=== PATIENT | female | born 1955 | race Caucasian/White ===

== ENCOUNTER 2017-02-18 23:39 | Inpatient (IN) | payer MEDICARE, MEDICAID ==
[~2017-02-18] VITALS: Ht 152.4 cm; Wt 66.8 kg
[~2017-02-18 23:39] MED LIST: CARV6.2534 PO; FURO-152 PO; GEMF600T PO; GLIP5TAB11 PO; INSLAN SQ; INSNOV SQ; LEVO150 PO; LEVO500 PO; METF10002 PO; METR500 PO
[2017-02-18 23:57] LABS: GLUCOSE,POINT OF CARE 133 MG/DL (70-110)
[2017-02-19] MEDS ORDERED: OXYB5 PO (00:02)
[2017-02-19] MEDS ORDERED: METF500T4 PO (00:02)
[2017-02-19] MEDS ORDERED: LOSA1TAB40 PO (00:02)
[2017-02-19] MEDS ORDERED: [UNRECOGNIZED DRUG - CODE] PO (00:02)
[2017-02-19] MEDS ORDERED: LEVO112T4 PO (00:02)
[2017-02-19] MEDS ORDERED: ONDANSETRON HCL 4 MG/2 ML VIAL IVP ONE ×2 (01:15→04:00)
[2017-02-19] MEDS ORDERED: KETOROLAC TROMETHAMINE 30 MG/ML VIAL IVP ONE (01:15)
[2017-02-19 01:53] LABS: HEMOGLOBIN 12.2 g/dL (12.0-16.0); MEAN CORPUSCULAR HEMOGLOBIN 31.2 pg (26.0-34.0); MEAN CORPUSCULAR HGB CONC 32.1 G/dL (31.0-37.0); MEAN CORPUSCULAR VOLUME 97 fL (80-100); PLATELET COUNT (AUTO) 368 K/uL (150-450); RED BLOOD CELL COUNT(AUTO) 3.91 MIL/uL (4.00-5.20); WHITE BLOOD COUNT (AUTO) 14.4 K/uL (4.5-11.0)
[2017-02-19 02:09] LABS: ALANINE AMINOTRANSFERASE 29 U/L (12-78); ALBUMIN 3.4 g/dL (3.4-5.0); ANION GAP 9 mmol/L (8-16); ASPARTATE AMINOTRANSFERASE 23 U/L (15-37); BILIRUBIN,TOTAL 0.2 mg/dL (0.1-1.0); CALCIUM, TOTAL 10.5 mg/dL (8.8-10.5); CARBON DIOXIDE 35 mmol/L (22-29); CHLORIDE 104 mmol/L (98-107); CREATININE 1.45 mg/dL (0.60-1.30); GLOMERULAR FILTR. RATE CALC 37 mL/min (>60); SODIUM SERUM 148 mmol/L (136-145); TOTAL PROTEIN, SERUM 7.9 g/dL (6.4-8.2); UREA NITROGEN, BLOOD 45 mg/dL (7-18)
[2017-02-19 02:18] LABS: POTASSIUM 2.9 mmol/L (3.5-5.1)
[2017-02-19 02:25] LABS: BAND NEUTROPHILS % (MANUAL) 8 % (1-5); BASOPHILS % (MANUAL) 1 % (0-2); LYMPHOCYTES % (MANUAL) 28 % (22-44); TOTAL CELLS COUNTED 100
[2017-02-19 02:26] LABS: RBC MORPHOLOGY COMMENT ABNORMAL R
[2017-02-19 02:30] LABS: LACTIC ACID 2.6 mmol/L (0.4-2.0)
[2017-02-19] MEDS ORDERED: POTASSIUM CHLORIDE 10% 40 MEQ/30 ML LIQUID UDCUP PO ONE (03:00)
[2017-02-19 03:48] LABS: REFLEX LACTIC ACID? YES YES
[2017-02-19] MEDS ORDERED: HYDROmorphone 2 MG/ML SYRINGE IVP ONE (04:00)
[2017-02-19] MEDS ORDERED: PIPERACILLIN/TAZO 3.375 GM/D5W 50 ML IV ONE ×2 (06:00→08:15)
[2017-02-19 11:43] LABS: GLUCOSE,POINT OF CARE 163 MG/DL (70-110)
[2017-02-19] MEDS ORDERED: CALC1TAB15 PO (13:43)
[2017-02-19 14:21] LABS: GLUCOSE,POINT OF CARE 215 MG/DL (70-110)
[2017-02-19 16:58] VITALS: BP 109/68
[2017-02-19 18:15] VITALS: BP 137/71
[2017-02-19] MEDS ORDERED: DEXTROSE 50%-WATER 25 GM/50 ML SYRINGE IVP PRN (18:30)
[2017-02-19] MEDS: OXYBUTYNIN CHLORIDE 5 MG TABLET PO SCH (19:36)
[2017-02-19] MEDS: FUROSEMIDE 20 MG TABLET PO SCH (19:36)
[2017-02-19 19:48] VITALS: BP 133/72
[2017-02-19] MEDS ORDERED: SODIUM CHLORIDE 0.9% 500 ML IV ONE (20:01)
[2017-02-19] MEDS: PIPERACILLIN/TAZO 3.375 GM/D5W 50 ML IV SCH (20:23)
[2017-02-19] MEDS: LEVOTHYROXINE SODIUM 137 MCG TABLET PO SCH (20:23)
[2017-02-19] MEDS: POTASSIUM CHLORIDE 8 MEQ ER TABLET PO SCH (20:23)
[2017-02-19] MEDS: MetFORMIN HCL 500 MG TABLET PO SCH (20:46)
[2017-02-19] MEDS: INSULIN ASPART 100 UNITS/ML SQ PRN (20:47)
[2017-02-19] MEDS ORDERED: INSULIN GLARGINE,HUM.REC.ANLOG 100 UNITS/ML SQ SCH (21:00)
[2017-02-19] MEDS: INSULIN DETEMIR 100 UNITS/ML SQ SCH (21:38)
[2017-02-19 21:43] VITALS: BP 110/63
[2017-02-19] MEDS: CARVEDILOL 6.25 MG TABLET PO SCH (21:44)
[2017-02-19 22:32] LABS: GLUCOSE COMMENT 1 Received Meds; GLUCOSE,POINT OF CARE 349 MG/DL (70-110)
[2017-02-19] MEDS: HEPARIN SODIUM,PORCINE 5,000 UNITS/ML VIAL SQ SCH (23:57)
[2017-02-20 00:03] VITALS: BP 92/62
[2017-02-20] MEDS: PIPERACILLIN/TAZO 3.375 GM/D5W 50 ML IV SCH ×5 (00:55→23:33)
[2017-02-20] MEDS: HYDROCODONE/ACETAMINOPHEN 5-325 MG TABLET PO PRN (01:03)
[2017-02-20 05:41] VITALS: BP 113/59
[2017-02-20] MEDS: GlipiZIDE 10 MG TABLET PO SCH ×2 (06:04→17:41)
[2017-02-20] MEDS: GEMFIBROZIL 600 MG TABLET PO SCH ×2 (06:04→16:31)
[2017-02-20 06:13] LABS: GLUCOSE,POINT OF CARE 125 MG/DL (70-110)
[2017-02-20 06:22] LABS: BASOPHILS % (AUTO) 0.3 % (0.0-2.0); EOSINOPHILS % (AUTO) 3.9 % (1.0-6.0); HEMATOCRIT 31.3 % (36-46); HEMOGLOBIN 10.2 g/dL (12.0-16.0); LYMPHOCYTES # (AUTO) 2.7 K/uL (1.0-4.8); LYMPHOCYTES % (AUTO) 27.3 % (22.0-44.0); MEAN CORPUSCULAR HEMOGLOBIN 31.7 pg (26.0-34.0); MEAN CORPUSCULAR HGB CONC 32.7 G/dL (31.0-37.0); MEAN CORPUSCULAR VOLUME 97 fL (80-100); MONOCYTES # (AUTO) 0.7 K/uL (0.1-1.0); MONOCYTES % (AUTO) 7.2 % (2.0-9.0); NEUTROPHILS # (AUTO) 6.2 K/uL (1.8-7.7); NEUTROPHILS % (AUTO) 61.3 % (40.0-70.0); PLATELET COUNT (AUTO) 322 K/uL (150-450); RED BLOOD CELL COUNT(AUTO) 3.23 MIL/uL (4.00-5.20); RED CELL DISTRIBUTION WIDTH 14.7 % (11.5-14.5); WHITE BLOOD COUNT (AUTO) 10.1 K/uL (4.5-11.0)
[2017-02-20 06:55] LABS: ALBUMIN 2.5 g/dL (3.4-5.0); BILIRUBIN,TOTAL 0.2 mg/dL (0.1-1.0); CALCIUM, TOTAL 9.5 mg/dL (8.8-10.5); CREATININE 1.24 mg/dL (0.60-1.30); TOTAL PROTEIN, SERUM 6.5 g/dL (6.4-8.2)
[2017-02-20] MEDS: POTASSIUM CHLORIDE 8 MEQ ER TABLET PO SCH (07:55)
[2017-02-20] MEDS: HEPARIN SODIUM,PORCINE 5,000 UNITS/ML VIAL SQ SCH ×3 (07:55→23:33)
[2017-02-20] MEDS: LEVOTHYROXINE SODIUM 137 MCG TABLET PO SCH (07:55)
[2017-02-20] MEDS: MetFORMIN HCL 500 MG TABLET PO SCH ×3 (07:55→21:18)
[2017-02-20] MEDS: OXYBUTYNIN CHLORIDE 5 MG TABLET PO SCH (07:56)
[2017-02-20] MEDS: FUROSEMIDE 20 MG TABLET PO SCH (07:56)
[2017-02-20] MEDS: CARVEDILOL 6.25 MG TABLET PO SCH ×2 (07:58→21:00)
[2017-02-20 08:06] LABS: HEMOGLOBIN A1C 7.3 % (4.5-6.2)
[2017-02-20 08:21] VITALS: BP 109/60
[2017-02-20 12:00] VITALS: BP 110/62
[2017-02-20 13:47] LABS: GLUCOSE,POINT OF CARE 76 MG/DL (70-110)
[2017-02-20] MEDS ORDERED: GADOBUTROL 1 MMOL/ML 10 ML VIAL IVP ONE (14:41)
[2017-02-20 16:06] LABS: GLUCOSE,POINT OF CARE 65 MG/DL (70-110)
[2017-02-20 16:42] LABS: GLUCOSE,POINT OF CARE 80 MG/DL (70-110)
[2017-02-20 19:30] VITALS: BP 111/64
[2017-02-20] MEDS: INSULIN DETEMIR 100 UNITS/ML SQ SCH (21:00)
[2017-02-20 21:32] LABS: GLUCOSE COMMENT 1 Received Meds; GLUCOSE,POINT OF CARE 81 MG/DL (70-110)
[2017-02-20 22:56] VITALS: BP 114/64
[2017-02-21 04:51] VITALS: BP 116/77
[2017-02-21] MEDS: GEMFIBROZIL 600 MG TABLET PO SCH ×2 (05:50→17:39)
[2017-02-21] MEDS: PIPERACILLIN/TAZO 3.375 GM/D5W 50 ML IV SCH ×4 (05:51→23:35)
[2017-02-21] MEDS: GlipiZIDE 10 MG TABLET PO SCH ×2 (05:51→17:39)
[2017-02-21 06:07] LABS: GLUCOSE,POINT OF CARE 111 MG/DL (70-110)
[2017-02-21 06:45] LABS: CALCIUM, TOTAL 9.5 mg/dL (8.8-10.5); CHOL/HDL RATIO 4.5 (3.9-5.7); CREATININE 1.11 mg/dL (0.60-1.30); MAGNESIUM 1.8 mg/dL (1.80-2.40); THYROID STIMULATING HORMONE 1.8 uIU/mL (0.36-3.74)
[2017-02-21 07:03] LABS: BASOPHILS % (AUTO) 0.3 % (0.0-2.0); EOSINOPHILS % (AUTO) 2.6 % (1.0-6.0); HEMATOCRIT 33.5 % (36-46); HEMOGLOBIN 10.8 g/dL (12.0-16.0); LYMPHOCYTES # (AUTO) 2.8 K/uL (1.0-4.8); LYMPHOCYTES % (AUTO) 27.3 % (22.0-44.0); MEAN CORPUSCULAR HEMOGLOBIN 31.4 pg (26.0-34.0); MEAN CORPUSCULAR HGB CONC 32.2 G/dL (31.0-37.0); MEAN CORPUSCULAR VOLUME 98 fL (80-100); MONOCYTES # (AUTO) 0.7 K/uL (0.1-1.0); MONOCYTES % (AUTO) 7.1 % (2.0-9.0); NEUTROPHILS # (AUTO) 6.4 K/uL (1.8-7.7); NEUTROPHILS % (AUTO) 62.7 % (40.0-70.0); PLATELET COUNT (AUTO) 353 K/uL (150-450); RED BLOOD CELL COUNT(AUTO) 3.43 MIL/uL (4.00-5.20); RED CELL DISTRIBUTION WIDTH 14.7 % (11.5-14.5); WHITE BLOOD COUNT (AUTO) 10.2 K/uL (4.5-11.0)
[2017-02-21 07:10] VITALS: BP 108/68
[2017-02-21] MEDS: LEVOTHYROXINE SODIUM 137 MCG TABLET PO SCH (09:21)
[2017-02-21] MEDS: CARVEDILOL 6.25 MG TABLET PO SCH ×2 (09:21→20:24)
[2017-02-21] MEDS: MetFORMIN HCL 500 MG TABLET PO SCH ×2 (09:21→19:38)
[2017-02-21] MEDS: POTASSIUM CHLORIDE 8 MEQ ER TABLET PO SCH (09:21)
[2017-02-21] MEDS: HEPARIN SODIUM,PORCINE 5,000 UNITS/ML VIAL SQ SCH ×3 (09:21→23:35)
[2017-02-21] MEDS: FUROSEMIDE 20 MG TABLET PO SCH (09:21)
[2017-02-21] MEDS: OXYBUTYNIN CHLORIDE 5 MG TABLET PO SCH (09:21)
[2017-02-21 11:14] VITALS: BP 135/78
[2017-02-21] MEDS ORDERED: POTASSIUM CHLORIDE 20 MEQ ER TABLET PO PRN (11:15)
[2017-02-21 11:57] LABS: GLUCOSE,POINT OF CARE 149 MG/DL (70-110)
[2017-02-21] MEDS: INSULIN ASPART 100 UNITS/ML SQ PRN ×3 (12:04→19:41)
[2017-02-21 16:12] VITALS: BP 113/71
[2017-02-21 18:07] LABS: GLUCOSE COMMENT 1 Received Meds; GLUCOSE,POINT OF CARE 213 MG/DL (70-110)
[2017-02-21] MEDS: HYDROCODONE/ACETAMINOPHEN 5-325 MG TABLET PO PRN (19:35)
[2017-02-21] MEDS: INSULIN DETEMIR 100 UNITS/ML SQ SCH (19:42)
[2017-02-21 20:25] VITALS: BP 128/75
[2017-02-21 20:41] LABS: GLUCOSE COMMENT 1 Received Meds; GLUCOSE,POINT OF CARE 259 MG/DL (70-110)
[2017-02-22 00:41] VITALS: BP 122/69
[2017-02-22 04:00] VITALS: BP 112/68
[2017-02-22] MEDS: PIPERACILLIN/TAZO 3.375 GM/D5W 50 ML IV SCH ×2 (05:38→12:28)
[2017-02-22] MEDS: GlipiZIDE 10 MG TABLET PO SCH (05:41)
[2017-02-22] MEDS: GEMFIBROZIL 600 MG TABLET PO SCH (05:41)
[2017-02-22] MEDS: INSULIN ASPART 100 UNITS/ML SQ PRN ×2 (05:42→12:26)
[2017-02-22 06:01] LABS: GLUCOSE COMMENT 1 Received Meds; GLUCOSE,POINT OF CARE 159 MG/DL (70-110)
[2017-02-22 07:10] VITALS: BP 129/97
[2017-02-22] MEDS: FUROSEMIDE 20 MG TABLET PO SCH (08:42)
[2017-02-22] MEDS: HEPARIN SODIUM,PORCINE 5,000 UNITS/ML VIAL SQ SCH (08:42)
[2017-02-22] MEDS: OXYBUTYNIN CHLORIDE 5 MG TABLET PO SCH (08:42)
[2017-02-22] MEDS: LEVOTHYROXINE SODIUM 137 MCG TABLET PO SCH (08:42)
[2017-02-22] MEDS: POTASSIUM CHLORIDE 8 MEQ ER TABLET PO SCH (08:42)
[2017-02-22] MEDS: CARVEDILOL 6.25 MG TABLET PO SCH (08:42)
[2017-02-22] MEDS: MetFORMIN HCL 500 MG TABLET PO SCH (08:42)
[2017-02-22 11:10] VITALS: BP 107/65
[2017-02-22 11:52] LABS: GLUCOSE,POINT OF CARE 175 MG/DL (70-110)
[2017-02-22] MEDS: HYDROCODONE/ACETAMINOPHEN 5-325 MG TABLET PO PRN (12:24)
[2017-02-22] MEDS ORDERED: CLIN300C3 PO (13:06)
== END 2017-02-22 16:00 | disposition home or self-care (01) | DRG 871 ==
LOC: EMS 23:41 → 6N 02-19 16:01
PROVIDERS: ADMIT Family Medicine; ATTEND Family Medicine
DX: A41.9 Sepsis, unspecified organism (principal); N17.0 Acute kidney failure with tubular necrosis; E87.0 Hyperosmolality and hypernatremia; M26.622 Arthralgia of left temporomandibular joint; E87.6 Hypokalemia; E11.9 Type 2 diabetes mellitus without complications; E78.00 Pure hypercholesterolemia, unspecified; I10 Essential (primary) hypertension; E03.9 Hypothyroidism, unspecified; M41.9 Scoliosis, unspecified; E78.5 Hyperlipidemia, unspecified; M54.30 Sciatica, unspecified side; Z79.899 Other long term (current) drug therapy; Z79.84 Long term (current) use of oral hypoglycemic drugs; Z79.4 Long term (current) use of insulin; Z90.49 Acquired absence of other specified parts of digestive tract; Z90.710 Acquired absence of both cervix and uterus; Z85.850 Personal history of malignant neoplasm of thyroid
CPT/HCPCS: 70490; 70543; 82962; 83036; 83605; 83735; 84132; 84443; 86140; 93005; 96365; 96375; 96376; 99285; A9585; J1170; J1644; J1815; J1885; J2405; J2543; J7040